=== PATIENT | female | born 1965 | race Caucasian/White ===

== ENCOUNTER → 2017-09-03 | Outpatient (CLI) | payer OTHER ==
[2017-09-03 09:48] LABS: BILIRUBIN NEGATIVE (NEGATIVE); BLOOD NEGATIVE (NEGATIVE); CLARITY CLEAR (CLEAR); COLOR YELLOW (YELLOW); GLUCOSE NEGATIVE (NEGATIVE); KETONE NEGATIVE (NEGATIVE); LEUKO ESTERASE 1+ (NEGATIVE); NITRITE NEGATIVE (NEGATIVE); SPECIFIC GRAVITY <= 1.005 (1.005-1.030); UROBILINOGEN 0.2 E.U./dl (0.2-1.0)
[2017-09-03 10:00] LABS: BACTERIA 1+; WBC 16-20 wbc/hpf (0-5)
== END | disposition home or self-care (01) ==
LOC: RESCLI 09:25
PROVIDERS: Hospitalist
DX: F41.1 Generalized anxiety disorder (principal); N30.00 Acute cystitis without hematuria; Z85.3 Personal history of malignant neoplasm of breast; Z80.3 Family history of malignant neoplasm of breast

== ENCOUNTER → 2018-05-15 | Outpatient (CLI) | payer OTHER | END | disposition home or self-care (01) | LOC: RESCLI 09:25 | DX: F41.1 Generalized anxiety disorder (principal); B35.9 Dermatophytosis, unspecified; E66.3 Overweight; J30.2 Other seasonal allergic rhinitis; N39.0 Urinary tract infection, site not specified; Z79.899 Other long term (current) drug therapy; Z88.8 Allergy status to other drugs, medicaments and biological substances ==

== ENCOUNTER → 2019-06-11 | Outpatient (CLI) | payer OTHER | END | disposition home or self-care (01) | LOC: RAD 08:22 | DX: R05 Cough (principal) ==